=== PATIENT | female | born 1945 | race Caucasian/White ===

== ENCOUNTER 2016-10-18 16:15 | Emergency (ER) | payer OTHER, BC ==
[2016-10-18] MEDS ORDERED: ZOFRAN INJ 4 MG VIAL ONE (16:16)
[2016-10-18] MEDS ORDERED: ZOFRAN INJ 4 MG VIAL IVP ONE ×2 (16:17→16:20)
--- NOTE | 2016-10-18 16:29 | DR.AMS ---
HPI - Time Seen Time seen: 16:15 - HPI Comment HPI Comment: EMS called to home of patient on floor, confused speech. EMS reports left sided weakness asymmetric smile and difficulty with speech. - Source History Provided: EMS - Mode of Arrival Mode of Arrival: Stretcher - Timing Onset of Chief Complaint: 10/18/16 Came On: Suddenly Symptoms: Unchanged Onset of Symptoms Start Date: 10/18/16 (last normal) - Duration Duration: Constant How lon Duration: Hours - Quality Quality: Confusion - Severity Severity: Moderate, Unable to care for self - Context History Of: Diabetes - Associated Signs and Symptoms Associated Signs and Symptoms: Left Sided Weakness, Slurred Speech, Confusion PMH - PMH Past Medical History: Diabetes PE - Vitals Vital Signs: Temp Pulse Resp BP Pulse Ox 10/18/16 16:32 97.1 F L 87 18 145/77 98 Course - Treatment Treatment: 1644: [facility] called on diversion per DR. Canales Er. 165: Called [facility] case dicussed 1710 DR. Lockwood Neurosurgeon accepted patient. Patient intubated as precaution due to emesis and altered LOC ROR - Labs Reviewed Result Diagrams: 10/18/16 16:35 10/18/16 16:35 Laboratory: WBC 6.2 X10^3/uL (3.6-10.0) 10/18/16 16:35 RBC 4.89 X10^6/uL (3.5-5.4) 10/18/16 16:35 Hgb 14.2 g/dL (12.0-16.0) 10/18/16 16:35 Hct 43.0 % (36.0-47.0) 10/18/16 16:35 MCV 88.0 fL (80.0-100.0) 10/18/16 16:35 MCH 29.1 pg (27.0-34.0) 10/18/16 16:35 MCHC 33.1 g/dL (33.0-35.0) 10/18/16 16:35 RDW 14.2 % (11.6-16.5) 10/18/16 16:35 Plt Count 217 X10^3/uL (150.0-450.0) 10/18/16 16:35 MPV 8.9 fL (7.4-11.0) 10/18/16 16:35 Neut % 56.5 % (42.0-75.0) 10/18/16 16:35 Lymph % 32.4 % (21.0-51.0) 10/18/16 16:35 [place] % 7.1 % (0.0-13.0) 10/18/16 16:35 Eos % 2.7 % (0.9-2.9) 10/18/16 16:35 Baso % 1.3 % (0.2-1.0) H 10/18/16 16:35 Neut # 3.5 x10^3/uL (2.2-4.8) 10/18/16 16:35 Lymph # 2.0 X10^3/uL (1.3-2.9) 10/18/16 16:35 [place] # 0.4 x10^3/uL (0.3-0.8) 10/18/16 16:35 Eos # 0.2 x10^3/uL (0.0-0.2) 10/18/16 16:35 Baso # 0.1 X10^3/uL (0.0-0.1) 10/18/16 16:35 Absolute Nucleated RBC 0.1 /100WBC 10/18/16 16:35 - XRAY XRAY Interpreted by: Radiologist XRAY Findings: CT head: right thalamic intraparenchymal hemorrhage with 3mm shift - Diagnosis Discharge Problem: Acute CVA (cerebrovascular accident) - Discharge Plan Condition: Stable - Follow ups/Referrals Follow ups/Referrals: GREGORY CARTER [Primary Care Provider] - 3 days - Instructions
[2016-10-18 16:37] VITALS: BMI 25.8
--- NOTE | 2016-10-18 16:44 | CT ---
HISTORY: Stroke, altered mental status Study: CT brain without contrast Comparison: None Technique: Multiple axial images of the brain were obtained from the skull base to the vertex witho ut administration of IV contrast. AEC was utilized. Findings: There is a hyperdense fluid collection in the right thalamus most compatible with acute intraparench ymal hemorrhage, likely hypertensive in origin, measuring 2.6 x 2.0 x 1.8 cm in greatest transverse, craniocaudal, and AP dimensions respectively with surrounding vasogenic edema as well as approximat anita 3 mm of right to left midline shift. An underlying vascular malformation , hemorrhagic conversio n of an ischemic event, or underlying mass could give a similar appearance as well and for which tem poral surveillance MRI without and with contrast is recommended on a nonemergent basis in approximat anita 3-6 months. There is a small amount of extension into the 3rd ventricle. A background of chronic microvascular ischemic disease is noted. There is an old right frontal lacunar infarct along the ca misael radiata. IMPRESSION: Acute right thalamic intraparenchymal hemorrhage with a small amount of intraventricular extension a nd mild right to left midline shift. Results were discussed with Dr. Gordon at 4:40 p.m. On October 18, [address] Marguerite Bangura. Reported By:
[2016-10-18 16:48] LABS: BASOPHILS # (AUTO) 0.1 X10^3/uL (0.0-0.1); BASOPHILS % (AUTO) 1.3 % (0.2-1.0); EOSINOPHILS # (AUTO) 0.2 x10^3/uL (0.0-0.2); EOSINOPHILS % (AUTO) 2.7 % (0.9-2.9); HEMOGLOBIN 14.2 g/dL (12.0-16.0); LYMPHOCYTES % (AUTO) 32.4 % (21.0-51.0); MEAN CORPUSCULAR HEMOGLOBIN 29.1 pg (27.0-34.0); MEAN CORPUSCULAR HGB CONC 33.1 g/dL (33.0-35.0); MEAN PLATELET VOLUME 8.9 fL (7.4-11.0); MONOCYTES # (AUTO) 0.4 x10^3/uL (0.3-0.8); MONOCYTES % (AUTO) 7.1 % (0.0-13.0); NEUTROPHILS # (AUTO) 3.5 x10^3/uL (2.2-4.8); NEUTROPHILS % (AUTO) 56.5 % (42.0-75.0); PLATELET COUNT 217 X10^3/uL (150.0-450.0); RED BLOOD COUNT 4.89 X10^6/uL (3.5-5.4); RED CELL DISTRIBUTION WIDTH 14.2 % (11.6-16.5); WHITE BLOOD COUNT 6.2 X10^3/uL (3.6-10.0)
[2016-10-18 16:56] LABS: ALANINE AMINOTRANSFERASE 28 Units/L (12-78); ALBUMIN 3.8 g/dL (3.4-5.0); ALKALINE PHOSPHATASE 52 Units/L (46-116); ASPARTATE AMINO TRANSFERASE 14 Units/L (15-37); BLOOD UREA NITROGEN 19 mg/dL (7-18); CALCIUM 9.1 mg/dL (8.5-10.1); CARBON DIOXIDE 27.8 mmol/L (21-32); CHLORIDE 104 mmol/L (98-107); CHOL/HDL RATIO 3.9 (0.0-5.0); CHOLESTEROL 174 mg/dL (0-200); COR NA(FOR HYPERGLY) 144 mmol/L (136-145); CREATININE 0.71 mg/dL (0.55-1.02); GLUCOSE 230 mg/dL (65-99); HDL CHOLESTEROL 45 mg/dL (40-60); SODIUM 141 mmol/L (136-145); TOTAL PROTEIN 7.2 g/dL (6.4-8.2); TRIGLYCERIDES 217 mg/dL (0-150); eGFR BLACK RACES > 60 (>60); eGFR NON BLACK RACES > 60 (>60)
[2016-10-18 17:00] VITALS: BP 157/81
[2016-10-18] MEDS ORDERED: NS 1000 ML 1,000 ML ONE (17:16)
== END 2016-10-18 18:00 | disposition other institution (70) ==
LOC: ER 16:15
DX: I63.9 Cerebral infarction, unspecified (principal); I61.8 Other nontraumatic intracerebral hemorrhage
CPT/HCPCS: 36415; 51702; 70450; 80053; 80061; 85025; 85384; 85610; 85730; 93005; 93010; 96365; 96374; 99283; 99285; A4222; J2405

== ENCOUNTER → 2016-11-07 | Outpatient (CLI) | payer OTHER, BC ==
[2016-10-18 17:00] VITALS: BP 157/81
--- NOTE | 2016-11-07 09:47 | RAD ---
HISTORY: Injury, fall, right thigh pain Study: Right femur two view Comparison: None Findings: No acute cortical disruption or dislocation can be identified. The femoral head and neck are unrema rkable in their appearance. No significant soft tissue swelling or injury can be seen. IMPRESSION: 1. Negative exam of the femur. Reported By:
--- NOTE | 2016-11-07 09:47 | RAD ---
HISTORY: Injury, fall, right thigh pain, right hip pain Study: Right hip two views, AP pelvis Comparison: None Findings: A single frontal view of the pelvis demonstrates the pelvic ring to be intact. No evidence for acut e cortical disruption or dislocation of the hip can be observed. Frog leg views of the hip fails to demonstrate evidence for fracture or significant joint abnormality. Impression: 1. Negative exam. Reported By:
== END ==
LOC: RAD 08:58
PROVIDERS: ATTEND Obstetrics & Gynecology Obstetrics
DX: M25.551 Pain in right hip (principal); M79.651 Pain in right thigh
CPT/HCPCS: 73501; 73552

== ENCOUNTER → 2016-11-30 | Outpatient (CLI) | payer OTHER, BC ==
--- NOTE | 2016-11-30 15:15 | RAD ---
HISTORY: Left knee pain, nontraumatic Study: Left knee 3 view Comparison: None Findings: There is no evidence for acute bone or acute joint abnormality. No fracture, lytic, or blastic lesio n is identified. No erosive changes are present. No joint effusion is present. There is moderate deg enerative medial compartment narrowing. IMPRESSION: Moderate degenerative medial compartment narrowing Reported By:
== END ==
LOC: RAD 13:43
PROVIDERS: ATTEND Obstetrics & Gynecology Obstetrics
DX: M25.562 Pain in left knee (principal)
CPT/HCPCS: 73560

== ENCOUNTER 2023-09-08 11:32 | Inpatient (IN) ==
--- NOTE | 2023-09-08 11:47 | DR.EXTPAIN ---
HPI Time seen Time Seen by Provider: 09/08/23 11:47 Complaint/Symptoms Chief Complaint Doctor Comments: 77-year-old female brought in by EMS for evaluation. Patient fell earlier this a.m. in the bathroom, approximately 3 AM. Patient too weak to get up off the floor, laying there for the past 7 hours. Having posterior head pain, posterior neck pain. Also with pain of the left upper arm, and left knee.. Has a history of chronic arthritis issues, chronic knee pain. Denies visual changes, URI symptoms, bowel or bladder issues. Pain constant, worse with movement. Nothing makes it better. Nurses notes reviewed Nurses Notes Review: Yes Source History Provided: Patient and EMS Mode of arrival Mode of Arrival: EMS PMH PMH Past Medical History: CVA, Diabetes and Hypertension Past Surgical History: Yes Surgical History: Other Family History Family Medical History: Diabetes Mellitus and Hypertension Social History Does patient currently use any type of tobacco product: No Alcohol Use: None Do you use any recreational Drugs:: No ROS Review of Systems Constitutional: No Symptoms Reported Eyes: No Symptoms Reported ENTM: No Symptoms Reported Respiratoy: No Symptoms Reported Cardiovascular: No Symptoms Reported Gastrointestinal/Abdominal: No Symptoms Reported Genitourinary: No Symptoms Reported Neurological: No Symptoms Reported Musculoskeletal: See HPI Integumentary: No Symptoms Reported Hematologic/Lymphatic: No Symptoms Reported All Other Systems: Reviewed and Negative PE Vital Signs Vitals: Vital Signs Temperature 97.6 F Temperature 97.6 F Pulse Rate [Right Brachial] 78 Pulse Rate 98 Pulse Rate 100 Pulse Rate 91 Pulse Rate 78 Respiratory Rate 18 Respiratory Rate 18 Blood Pressure [Right Arm] 146/80 Blood Pressure 149/79 Blood Pressure 146/80 O2 Sat by Pulse Oximetry 92 O2 Sat by Pulse Oximetry 96 O2 Sat by Pulse Oximetry 93 O2 Sat by Pulse Oximetry 97 O2 Sat by Pulse Oximetry 97 General General Appearance: Alert and In No Apparent Distress Head Head Exam: Normal Inspection, Atraumatic and Normocephalic Eyes Eye exam: PERRL and EOMI ENT ENT Exam: Normal Oropharynx and Mucous Membranes Moist Neck Neck Exam: Tenderness (diffuse posterior aspect) Chest Chest Inspection: Normal Inspection Respiratory Respiratory Exam: Normal Lung Sounds Bilat; negative Accessory Muscle Use or Respiratory Distress Cardiovascular Cardiovascular Exam: Regular Rate, Normal Rhythm and Normal Heart Sounds Abdominal Exam Abdominal Exam: Soft; negative Tenderness Extremities Extremities Exam: negative Edema Upper Extremities Arm Exam: Tenderness (L upper humerus, no deformmity or crepitus) Lower Extremities Knee Exam: Tenderness (L knee diffusely, no effusion. ) Back Back Exam: Normal Inspection Neurological Neurological Exam: Alert and CN II-XII Intact; negative Motor Sensory Deficit Skin Skin Exam: Warm and Dry COURSE Treatment Treatment: 77-year-old female fell in the bathroom approximately 7 hours ago, couldn't get off the floor. Will CT the head and neck, and x-ray of the left humerus, left knee. IV started, given IV fluids. Will check baseline labs including a creatine kinase. 1313 - labs acceptable. Imaging studies acceptable, no acute abnormalities. PT recently d/c'd from [place] yesterday. Distant family had made arrangements for pt to have her oown place in [place], just moved in yesterday. Pt unable to care for herself, + h/o dementia. Extended family unable to care for her. Will attempt to readmit, for generalized weakness, possible early rhabdomyolisis. Will contuine to hydrate, follow CK levels. Discussed with Dr Chaney, Covering for Dr Adrian, will admit. U/A checked per Dr Chaney' request. + UTI. Will add IV rocephin daily. ROR Labs Reviewed Laboratory Results Reviewed?: Yes 09/08/23 12:00 09/08/23 12:00 Laboratory: WBC 11.6 X10^3/uL (3.6-10.0) H 09/08/23 12:00 RBC 4.87 X10^6/uL (3.5-5.4) 09/08/23 12:00 Hgb 14.2 g/dL (12.0-16.0) 09/08/23 12:00 Hct 43.4 % (36.0-47.0) 09/08/23 12:00 MCV 89.1 fL (80.0-100.0) 09/08/23 12:00 MCH 29.1 pg (27.0-34.0) 09/08/23 12:00 MCHC 32.7 g/dL (33.0-35.0) L 09/08/23 12:00 RDW 15.4 % (11.6-16.5) 09/08/23 12:00 Plt Count 343 X10^3/uL (150.0-450.0) 09/08/23 12:00 MPV 9.0 fL (7.4-11.0) 09/08/23 12:00 Neut % (Auto) 85.4 % (42.0-75.0) H 09/08/23 12:00 Lymph % (Auto) 7.6 % (21.0-51.0) L 09/08/23 12:00 [place] % (Auto) 6.3 % (0.0-13.0) 09/08/23 12:00 Eos % (Auto) 0.1 % (0.9-2.9) L 09/08/23 12:00 Baso % (Auto) 0.6 % (0.2-1.0) 09/08/23 12:00 Neut # (Auto) 9.9 x10^3/uL (2.2-4.8) H 09/08/23 12:00 Lymph # (Auto) 0.9 X10^3/uL (1.3-2.9) L 09/08/23 12:00 [place] # (Auto) 0.7 x10^3/uL (0.3-0.8) 09/08/23 12:00 Eos # (Auto) 0.0 x10^3/uL (0.0-0.2) 09/08/23 12:00 Baso # (Auto) 0.1 X10^3/uL (0.0-0.1) 09/08/23 12:00 Absolute Nucleated RBC 0.1 /100WBC 09/08/23 12:00 Sodium 138 mmol/L (136-145) 09/08/23 12:00 Corrected Sodium 139 mmol/L (136-145) 09/08/23 12:00 Potassium 4.1 mmol/L (3.5-5.1) 09/08/23 12:00 Chloride 102 mmol/L (98-107) 09/08/23 12:00 Carbon Dioxide 25.4 mmol/L (21-32) 09/08/23 12:00 BUN 19 mg/dL (7-18) H 09/08/23 12:00 Creatinine 0.91 mg/dL (0.55-1.02) 09/08/23 12:00 Est GFR (MDRD) Af Amer > 60 (>60) 09/08/23 12:00 Est GFR (MDRD) Non-Af > 60 (>60) 09/08/23 12:00 Glucose 147 mg/dL (65-99) H 09/08/23 12:00 Calcium 8.9 mg/dL (8.5-10.1) 09/08/23 12:00 Corrected Calcium TNP 09/08/23 12:00 Total Bilirubin 0.50 mg/dL (0.2-1.0) 09/08/23 12:00 AST 18 Units/L (15-37) 09/08/23 12:00 ALT 20 Units/L (12-78) 09/08/23 12:00 Alkaline Phosphatase 61 Units/L (46-116) 09/08/23 12:00 Creatine Kinase 210 Units/L (26-192) H 09/08/23 12:00 Total Protein 7.9 g/dL (6.4-8.2) 09/08/23 12:00 Albumin 3.7 g/dL (3.4-5.0) 09/08/23 12:00 Globulin 4.2 g/dL (2.5-4.5) 09/08/23 12:00 Albumin/Globulin Ratio 0.9 Ratio (1.1-2.1) L 09/08/23 12:00 Lipase 45 Units/L (16-77) 09/08/23 12:00 Specimen Type Catherized urine 09/08/23 13:39 Urine Color Yellow (YELLOW) 09/08/23 13:39 Urine Appearance Slightly hazy (CLEAR) 09/08/23 13:39 Urine pH 5.0 (5.0 - 8.0) 09/08/23 13:39 Ur Specific [place] 1.020 (1.000-1.030) 09/08/23 13:39 Urine Protein 2+ (NEGATIVE) 09/08/23 13:39 Urine Glucose (UA) Negative (NEGATIVE) 09/08/23 13:39 Urine Ketones Negative (NEGATIVE) 09/08/23 13:39 Urine Blood 2+ (NEGATIVE) 09/08/23 13:39 Urine Nitrite Positive (NEGATIVE) 09/08/23 13:39 Urine Bilirubin Negative (NEGATIVE) 09/08/23 13:39 Urine Urobilinogen Normal (NORMAL) 02/04/24 13:39 Ur Leukocyte Esterase Negative (NEGATIVE) 09/08/23 13:39 Urine RBC 3-5 /HPF (0-3) A 09/08/23 13:39 Urine WBC 30-50 /HPF (0-5) A 09/08/23 13:39 Ur Squamous Epith Cells Few /HPF (NEGATIVE) 09/08/23 13:39 Urine Bacteria 4+ /HPF (NEGATIVE) 09/08/23 13:39 Ur Culture Indicated? Yes/culture set up 09/08/23 13:39 Labs acceptable at present XRAY XRAY Interpreted by: Both X-ray Results: No acute abnormalities. EXAM: HEAD (TRAUMA) HISTORY: s/p fall; COMPARISON: July 23, 2023 TECHNIQUE: Axial CT of the head is performed from the base of the skull through the vertex without contrast . Multiplaner reformats are generated from the original axial data. FINDINGS: No intracranial hemorrhage or extra-axial fluid collection identified. Moderate degenerative white matter changes associated with the deep white matter tracts of the supratentorial brain related to chronic small-vessel ischemia. Multiple chronic lacunar infarctions involve the deep white matter tracts, basal ganglia and thalamic nuclei. Athero sclerotic cavernous ICA and vertebral artery calcifications are observed. There is no evidence of an acute intracranial hemorrhage. No extra-axial hematoma is identified. No suprasellar asymmetry is identified. The cerebellar tonsils are normal in position. The craniocervical alignment is maintained. Sinuses and mastoid air cells are predominantly clear. The calvarium is intact. There is evidence of hyperostosis frontalis interna IMPRESSION: No acute intracranial abnormalities Advanced microangiopathic ischemic changes of the supratentorial brain, as detailed above Age-related cortical volume loss with commensurate ventricular dilatation Radiation dose reduction was achieved through individualized adjustment of kVP and/or mA, through adaptive statistical iterative reconstruction, and/or through automated tube current modulation. THIS IS AN ELECTRONICALLY VERIFIED FINAL REPORT 09/08/2023 12:45 PM - Electronically signed by Shane Woodard MD EXAM: CERVICAL SPINE W/O CON HISTORY: pain, s/p fall; COMPARISON: None. TECHNIQUE: Multiple axial images of the cervical spine were obtained from the skull base to the thoracic inlet without administration of IV contrast. Sagittal and coronal reformats were performed and reviewed. Dose reduction techniques including Automated Exposure Control (AEC) and adjustment of mA and kV were utilized. FINDINGS: No prevertebral swelling. No paravertebral fluid collections are demonstrated. There is a nodule of the left thyroid isthmus measuring 8 mm. Athero sclerotic calcifications are associated with bilateral carotid bulbs and proximal ICA segments. The included lung apices are clear. No apical pneumothorax is identified. Athero sclerotic calcifications are also noted within the aortic arch. The craniocervical alignment is maintained. The occipital condyles are intact. 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 The right clavicular head is subluxed anteriorly while the left clavicular head is subluxed posteriorly with respect to the joints. Regarding the cervical spine, the vertebral body heights are adequately maintained. Concave endplate morphology is observed at the inferior aspect of T1 and T2 and superior endplate of T3, most likely of chronic etiology. This results in mild height loss of the levels of T1, T2 and T3 There is congenital or acquired fusion across the facet joints at C2-3 and C3-4. With respect to the cervical spine, the vertebral body heights are well- maintained in the alignment of the spine is anatomic. There is extensive multilevel facet hypertrophy and cervical spondylosis. Disc space narrowing is moderate at C6-7. Degenerative changes of the cervical spine contribute to spinal stenosis and neural foraminal narrowing at various levels. Notably at C6-7 there is moderate spinal stenosis secondary to disc osteophyte complex. At C3-4, there is advanced right-sided neural foraminal compromise secondary to facet and uncovertebral osteophytes. Bone mineral density is uniformly decreased overall. There is mild levoscoliosis of the upper thoracic spine. IMPRESSION: No acute cervical spine fracture or posttraumatic subluxation. See above for details of additional chronic and age-related degenerative imaging findings. THIS IS AN ELECTRONICALLY VERIFIED FINAL REPORT 09/08/2023 12:50 PM - Electronically signed by Shane Woodard MD Opioid Opioid Risk Tool Age ([place] box if 16-45): No History of Preadolescent Sexual Abuse: No Total: 0 Total Score Risk Category: Low Risk Copyright: Jame ARROYO predicting aberrant behaviors Discharge Plan Diagnosis Discharge Problem: Generalized weakness, Rhabdomyolysis, Acute UTI Discharge Plan Patient Disposition: 09 ADMITTED INPATIENT Condition: Stable Orders to Discharge Patient Discharge Orders: Transfer (Routine); Ordered 09/08/23 Ordered By: Michel Naranjo
[2023-09-08] MEDS ORDERED: NS 500 ML IV 500 ML IV ONE (12:03)
[2023-09-08] MEDS: NS 500 ML IV 500 ML IV ONE (12:06)
[2023-09-08 12:23] LABS: BASOPHILS # (AUTO) 0.1 X10^3/uL (0.0-0.1); EOSINOPHILS % (AUTO) 0.1 % (0.9-2.9); LYMPHOCYTES # (AUTO) 0.9 X10^3/uL (1.3-2.9); MONOCYTES % (AUTO) 6.3 % (0.0-13.0)
[2023-09-08 12:25] LABS: ALANINE AMINOTRANSFERASE 20 Units/L (12-78); ALBUMIN 3.7 g/dL (3.4-5.0); ALKALINE PHOSPHATASE 61 Units/L (46-116); ASPARTATE AMINO TRANSFERASE 18 Units/L (15-37); BLOOD UREA NITROGEN 19 mg/dL (7-18); CALCIUM 8.9 mg/dL (8.5-10.1); CARBON DIOXIDE 25.4 mmol/L (21-32); CHLORIDE 102 mmol/L (98-107); COR NA(FOR HYPERGLY) 139 mmol/L (136-145); CREATINE KINASE 210 Units/L (26-192); CREATININE 0.91 mg/dL (0.55-1.02); GLUCOSE 147 mg/dL (65-99); LIPASE 45 Units/L (16-77); POTASSIUM 4.1 mmol/L (3.5-5.1); SODIUM 138 mmol/L (136-145); TOTAL PROTEIN 7.9 g/dL (6.4-8.2); eGFR NON BLACK RACES > 60 (>60)
[2023-09-08 12:34] LABS: BASOPHILS % (AUTO) 0.6 % (0.2-1.0); HEMATOCRIT 43.4 % (36.0-47.0); HEMOGLOBIN 14.2 g/dL (12.0-16.0); LYMPHOCYTES % (AUTO) 7.6 % (21.0-51.0); MEAN CORPUSCULAR HEMOGLOBIN 29.1 pg (27.0-34.0); MEAN CORPUSCULAR HGB CONC 32.7 g/dL (33.0-35.0); MEAN CORPUSCULAR VOLUME 89.1 fL (80.0-100.0); MONOCYTES # (AUTO) 0.7 x10^3/uL (0.3-0.8); NEUTROPHILS # (AUTO) 9.9 x10^3/uL (2.2-4.8); NEUTROPHILS % (AUTO) 85.4 % (42.0-75.0); PLATELET COUNT 343 X10^3/uL (150.0-450.0); RED BLOOD COUNT 4.87 X10^6/uL (3.5-5.4); RED CELL DISTRIBUTION WIDTH 15.4 % (11.6-16.5); WHITE BLOOD COUNT 11.6 X10^3/uL (3.6-10.0)
--- NOTE | 2023-09-08 12:49 | CT ---
EXAM: HEAD (TRAUMA) HISTORY: s/p fall; COMPARISON: July 23, 2023 TECHNIQUE: Axial CT of the head is performed from the base of the skull through the vertex without contrast . Mu ltiplaner reformats are generated from the original axial data. FINDINGS: No intracranial hemorrhage or extra-axial fluid collection identified. Moderate degenerative white m atter changes associated with the deep white matter tracts of the supratentorial brain related to chr onic small-vessel ischemia. Multiple chronic lacunar infarctions involve the deep white matter tract s, basal ganglia and thalamic nuclei. Athero sclerotic cavernous ICA and vertebral artery calcificat ions are observed. There is no evidence of an acute intracranial hemorrhage. No extra-axial hematom a is identified. No suprasellar asymmetry is identified. The cerebellar tonsils are normal in posit ion. The craniocervical alignment is maintained. Sinuses and mastoid air cells are predominantly cl ear. The calvarium is intact. There is evidence of hyperostosis frontalis interna IMPRESSION: No acute intracranial abnormalities Advanced microangiopathic ischemic changes of the supratentorial brain, as detailed above Age-related cortical volume loss with commensurate ventricular dilatation Radiation dose reduction was achieved through individualized adjustment of kVP and/or mA, through ada ptive statistical iterative reconstruction, and/or through automated tube current modulation. THIS IS AN ELECTRONICALLY VERIFIED FINAL REPORT 09/08/2023 12:45 PM - Electronically signed by Shane Woodard MD
--- NOTE | 2023-09-08 12:54 | CT ---
EXAM:CERVICAL SPINE W/O CONHISTORY:pain, s/p fall;COMPARISON:None.TECHNIQUE:Multiple axial images of the cervical spine were obtained from the skull base to the thoracic inlet without administration of IV contrast. Sagittal and coronal reformats were performed and reviewed. Dose reduction techniques including Automated Exposure Control (AEC) and adjustment of mA and kV were utilized.FINDINGS:No prevertebral swelling. No paravertebral fluid collections are demonstrated. There is a nodule of the left thyroid isthmus measuring 8 mm. Athero sclerotic calcifications are associated with bilateral carotid bulbs and proximal ICA segments. The included lung apices are clear. No apical pneumothorax is identified. Athero sclerotic calcifications are also noted within the aortic arch. The craniocervical alignment is maintained. The occipital condyles are intact. 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 The right clavicular head is subluxed anteriorly while the left clavicular head is subluxed posteriorly with respect to the joints.Regarding the cervical spine, the vertebral body heights are adequately maintained. Concave endplate morphology is observed at the inferior aspect of T1 and T2 and superior endplate of T3, most likely of chronic etiology. This results in mild height loss of the levels of T1, T2 and U8Qvong is congenital or acquired fusion across the facet joints at C2-3 and C3-4. With respect to the cervical spine, the vertebral body heights are well-maintained in the alignment of the spine is anatomic. There is extensive multilevel facet hypertrophy and cervical spondylosis. Disc space narrowing is moderate at C6-7. Degenerative changes of the cervical spine contribute to spinal stenosis and neural foraminal narrowing at various levels. Notably at C6-7 there is moderate spinal stenosis secondary to disc osteophyte complex. At C3-4, there is advanced right-sided neural foraminal compromise secondary to facet and uncovertebral osteophytes. Bone mineral density is uniformly decreased overall. There is mild levoscoliosis of the upper thoracic spine.IMPRESSION:No acute cervical spine fracture or posttraumatic subluxation.See above for details of additional chronic and age-related degenerative imaging findings.THIS IS AN ELECTRONICALLY VERIFIED FINAL REPORT09/08/2023 12:50 PM - Electronically signed by Shane Woodard MD
[2023-09-08 13:49] LABS: BILIRUBIN,URINE NEGATIVE (NEGATIVE); BLOOD/HEMOGLOBIN,URINE 2+ (NEGATIVE); GLUCOSE, URINE NEGATIVE (NEGATIVE); KETONES,URINE NEGATIVE (NEGATIVE); LEUKOCYTE ESTERASE ,URINE NEGATIVE (NEGATIVE); NITRITES,URINE POSITIVE (NEGATIVE); PROTEIN,URINE 2+ (NEGATIVE); UROBILINOGEN,URINE NORMAL (NORMAL)
[2023-09-08 14:00] LABS: APPEARANCE,URINE SLIGHTLY HAZY (CLEAR); BACTERIA,URINE 4+ /HPF (NEGATIVE); COLOR,URINE YELLOW (YELLOW); SQUAMOUS EPITHELIAL CELL,UR FEW /HPF (NEGATIVE)
[2023-09-08] MEDS ORDERED: ROCEPHIN VIAL 1 GRAM ONE (14:19)
[2023-09-08] MEDS: ROCEPHIN VIAL 1 GRAM IVP ONE (14:23)
[2023-09-08] MEDS: D5 1/2 NS 1,000 ML 1,000 ML IV SCH (15:30)
[2023-09-08] MEDS: ROCEPHIN VIAL 1 GRAM 1 G in NS 100 ML IV 100 ML IV SCH (15:50)
[2023-09-08] MEDS: GLUCOPHAGE PO SCH (17:14)
[2023-09-08] MEDS: GLUCOPHAGE ONE (17:42)
[2023-09-08] MEDS: CONSULT PHARMACY - POTASSIUM & MAGNESIUM XX SCH (18:56)
--- NOTE | 2023-09-08 19:25 | RAD ---
EXAM:Left humerus two viewsHISTORY:Pain status post fallCOMPARISON:None.TECHNIQUE:Left humerus two viewsFINDINGS:There is no fracture of the humerus. There is an old injury at the AC joint with a deformity of the distal end of the clavicle related to is some mild degeneration of the glenohumeral jointIMPRESSION:No acute abnormality.THIS IS AN ELECTRONICALLY VERIFIED FINAL REPORT09/08/2023 7:21 PM - Electronically signed by Lacho Rushing MD
[2023-09-08] MEDS: SNACK - Diabetic Appropriate PO SCH (19:30)
[2023-09-08] MEDS: MAG-OX TAB PO SCH ×2 (19:59→20:49)
--- NOTE | 2023-09-08 20:44 | RAD ---
EXAM:KNEE COMPLETE, LEFTHISTORY:pain, s/p fall;COMPARISON:None.TECHNIQUE:AP, oblique and lateral views were acquiredFINDINGS:There is no fracture. There is degeneration most severe in the medial compartment with cartilage loss and subchondral sclerosis and osteophyte formation. There is also some osteophyte formation of the lateral compartment.. There is no joint effusion. Soft tissues are unremarkable.IMPRESSION:Degeneration but nothing acute.THIS IS AN ELECTRONICALLY VERIFIED FINAL REPORT09/08/2023 8:34 PM - Electronically signed by Lacho Rushing MD
[2023-09-08] MEDS: ZOCOR TAB 20 MG PO SCH (21:17)
[2023-09-08] MEDS: NovoLIN R (or HumuLIN R) SUBCUT PRN (21:17)
[2023-09-08] MEDS: APRESOLINE TAB 25 MG PO SCH (21:17)
[2023-09-09] MEDS ORDERED: GLUCOPHAGE ONE (04:40)
[2023-09-09 05:30] LABS: BASOPHILS % (AUTO) 0.6 % (0.2-1.0); EOSINOPHILS # (AUTO) 0.1 x10^3/uL (0.0-0.2); EOSINOPHILS % (AUTO) 1.8 % (0.9-2.9); HEMOGLOBIN 12.7 g/dL (12.0-16.0); LYMPHOCYTES # (AUTO) 1.1 X10^3/uL (1.3-2.9); LYMPHOCYTES % (AUTO) 14.7 % (21.0-51.0); MEAN CORPUSCULAR HEMOGLOBIN 28.9 pg (27.0-34.0); MEAN CORPUSCULAR HGB CONC 32.5 g/dL (33.0-35.0); MEAN PLATELET VOLUME 9.1 fL (7.4-11.0); MONOCYTES # (AUTO) 0.8 x10^3/uL (0.3-0.8); MONOCYTES % (AUTO) 11.3 % (0.0-13.0); NEUTROPHILS # (AUTO) 5.3 x10^3/uL (2.2-4.8); NEUTROPHILS % (AUTO) 71.6 % (42.0-75.0); PLATELET COUNT 320 X10^3/uL (150.0-450.0); RED BLOOD COUNT 4.38 X10^6/uL (3.5-5.4); RED CELL DISTRIBUTION WIDTH 15.4 % (11.6-16.5); WHITE BLOOD COUNT 7.4 X10^3/uL (3.6-10.0)
[2023-09-09 05:36] LABS: ALANINE AMINOTRANSFERASE 14 Units/L (12-78); ALBUMIN 2.8 g/dL (3.4-5.0); ALKALINE PHOSPHATASE 50 Units/L (46-116); ASPARTATE AMINO TRANSFERASE 8 Units/L (15-37); BLOOD UREA NITROGEN 19 mg/dL (7-18); CALCIUM 8.1 mg/dL (8.5-10.1); CARBON DIOXIDE 27.5 mmol/L (21-32); CHLORIDE 105 mmol/L (98-107); COR CA(FOR HYPOALB) 9.1 mg/dL (8.5-10.1); COR NA(FOR HYPERGLY) 140 mmol/L (136-145); CREATININE 0.91 mg/dL (0.55-1.02); GLUCOSE 152 mg/dL (65-99); POTASSIUM 3.3 mmol/L (3.5-5.1); SODIUM 139 mmol/L (136-145); TOTAL PROTEIN 6.4 g/dL (6.4-8.2); eGFR NON BLACK RACES > 60 (>60)
[2023-09-09] MEDS ORDERED: CONSULT PHARMACY - POTASSIUM & MAGNESIUM XX SCH (07:00)
[2023-09-09] MEDS: FLONASE NASAL SPRAY ENOSTRIL SCH (09:47)
[2023-09-09] MEDS: LOVENOX INJ 40 MG SYR SC SCH (09:48)
[2023-09-09] MEDS: K-DUR TAB 20 MEQ PO SCH (09:49)
[2023-09-09] MEDS: MAG-OX TAB PO SCH (09:49)
[2023-09-09] MEDS: AMARYL TAB 4 MG PO SCH (09:49)
[2023-09-09] MEDS: ZOLOFT PO SCH (09:49)
[2023-09-09] MEDS: ZyrTEC TAB 10 MG PO SCH (09:49)
[2023-09-09] MEDS: JANUVIA PO SCH (09:49)
--- NOTE | 2023-09-09 13:48 | DR.H&P ---
H&P History & Physical for Day of: H&P Date: 09/09/23 Chief Complaint Chief Complaint: Fell Allergies Allergies Allergy/AdvReac Type Severity Reaction Status Date / Time codeine Allergy Unknown Verified 09/08/23 13:54 History of Present Illness History of Present Illness: This is a pleasant 77-year-old white female well- known to me. I just discharged her from the [facility] on September 06, 2023. Unfortunately, the patient was only able to spend 1 full day home. The patient got up around 3 AM to use the restroom and fell. She was too weak to get up off the floor and laid there for about 7 hours. She was having posterior head pain, posterior neck pain and also pain of the left upper arm and left knee. She sustained this during the fall. X-rays revealed no acute fracture or problems from the fall. Urinalysis shows that she has a mild urinar y tract infection. She denies any visual changes, upper respiratory symptoms, or GI symptoms. She reports that the pain from the fall is constant and worse with movement. Nothing is making it better. 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 Past Surgical History Surgical History: Other Family History Family Medical History: Diabetes Mellitus and Hypertension Social History Does patient currently use any type of tobacco product: No Does any household member use tobacco: No Alcohol Use: None Drug Use: None Medications Home Medications: Home Medications Medication Instructions Recorded Confirmed Type cetirizine 10 mg tablet 10 mg PO QDAY 09/08/23 09/08/23 History diclofenac sodium 1 % topical gel 1 ea topical QID 09/08/23 09/08/23 History fluticasone propionate 50 2 spray intranasal DAILY 09/08/23 09/08/23 History mcg/actuation nasal spray,suspension glimepiride 4 mg tablet 4 mg PO QDAY 09/08/23 09/08/23 History hydralazine 25 mg tablet 25 mg PO TID 09/08/23 09/08/23 History metformin 500 mg tablet 500 mg PO BID 09/08/23 09/08/23 History sertraline 50 mg tablet 50 mg PO QDAY 09/08/23 09/08/23 History simvastatin 20 mg tablet 20 mg PO QPM 09/08/23 09/08/23 History sitagliptin phosphate 100 mg 100 mg PO QDAY 09/08/23 09/08/23 History tablet (Januvia) Labs 09/09/23 04:25 09/09/23 04:25 Labs: 09/08/23 13:39 Urine,Catheterized Urine Culture - Preliminary Laboratory WBC 7.4 X10^3/uL (3.6-10.0) 09/09/23 04:25 RBC 4.38 X10^6/uL (3.5-5.4) 09/09/23 04:25 Hgb 12.7 g/dL (12.0-16.0) 09/09/23 04:25 Hct 39.0 % (36.0-47.0) 09/09/23 04:25 MCV 89.0 fL (80.0-100.0) 09/09/23 04:25 MCH 28.9 pg (27.0-34.0) 09/09/23 04:25 MCHC 32.5 g/dL (33.0-35.0) L 09/09/23 04:25 RDW 15.4 % (11.6-16.5) 09/09/23 04:25 Plt Count 320 X10^3/uL (150.0-450.0) 09/09/23 04:25 MPV 9.1 fL (7.4-11.0) 09/09/23 04:25 Neut % (Auto) 71.6 % (42.0-75.0) 09/09/23 04:25 Lymph % (Auto) 14.7 % (21.0-51.0) L 09/09/23 04:25 [place] % (Auto) 11.3 % (0.0-13.0) 09/09/23 04:25 Eos % (Auto) 1.8 % (0.9-2.9) 09/09/23 04:25 Baso % (Auto) 0.6 % (0.2-1.0) 09/09/23 04:25 Neut # (Auto) 5.3 x10^3/uL (2.2-4.8) H 09/09/23 04:25 Lymph # (Auto) 1.1 X10^3/uL (1.3-2.9) L 09/09/23 04:25 [place] # (Auto) 0.8 x10^3/uL (0.3-0.8) 09/09/23 04:25 Eos # (Auto) 0.1 x10^3/uL (0.0-0.2) 09/09/23 04:25 Baso # (Auto) 0.0 X10^3/uL (0.0-0.1) 09/09/23 04:25 Absolute Nucleated RBC 0.0 /100WBC 09/09/23 04:25 Sodium 139 mmol/L (136-145) 09/09/23 04:25 Corrected Sodium 140 mmol/L (136-145) 09/09/23 04:25 Potassium 3.3 mmol/L (3.5-5.1) L 09/09/23 04:25 Chloride 105 mmol/L (98-107) 09/09/23 04:25 Carbon Dioxide 27.5 mmol/L (21-32) 09/09/23 04:25 BUN 19 mg/dL (7-18) H 09/09/23 04:25 Creatinine 0.91 mg/dL (0.55-1.02) 09/09/23 04:25 Est GFR (MDRD) Af Amer > 60 (>60) 09/09/23 04:25 Est GFR (MDRD) Non-Af > 60 (>60) 09/09/23 04:25 Glucose 152 mg/dL (65-99) H 09/09/23 04:25 POC Glucose (mg/dL) 129 mg/dL (65-99) H 09/09/23 12:29 Calcium 8.1 mg/dL (8.5-10.1) L 09/09/23 04:25 Corrected Calcium 9.1 mg/dL (8.5-10.1) 09/09/23 04:25 Magnesium 1.9 mg/dL (2.0-2.9) L 09/09/23 04:25 Total Bilirubin 0.40 mg/dL (0.2-1.0) 09/09/23 04:25 AST 8 Units/L (15-37) L 09/09/23 04:25 ALT 14 Units/L (12-78) 09/09/23 04:25 Alkaline Phosphatase 50 Units/L (46-116) 09/09/23 04:25 Creatine Kinase 140 Units/L (26-192) 09/09/23 04:25 Total Protein 6.4 g/dL (6.4-8.2) 09/09/23 04:25 Albumin 2.8 g/dL (3.4-5.0) L 09/09/23 04:25 Globulin 3.6 g/dL (2.5-4.5) 09/09/23 04:25 Albumin/Globulin Ratio 0.8 Ratio (1.1-2.1) L 09/09/23 04:25 Lipase 45 Units/L (16-77) 09/08/23 12:00 Specimen Type Catherized urine 09/08/23 13:39 Urine Color Yellow (YELLOW) 09/08/23 13:39 Urine Appearance Slightly hazy (CLEAR) 09/08/23 13:39 Urine pH 5.0 (5.0 - 8.0) 09/08/23 13:39 Ur Specific [place] 1.020 (1.000-1.030) 09/08/23 13:39 Urine Protein 2+ (NEGATIVE) 09/08/23 13:39 Urine Glucose (UA) Negative (NEGATIVE) 09/08/23 13:39 Urine Ketones Negative (NEGATIVE) 09/08/23 13:39 Urine Blood 2+ (NEGATIVE) 09/08/23 13:39 Urine Nitrite Positive (NEGATIVE) 09/08/23 13:39 Urine Bilirubin Negative (NEGATIVE) 09/08/23 13:39 Urine Urobilinogen Normal (NORMAL) 09/08/23 13:39 Ur Leukocyte Esterase Negative (NEGATIVE) 09/08/23 13:39 Urine RBC 3-5 /HPF (0-3) A 09/08/23 13:39 Urine WBC 30-50 /HPF (0-5) A 09/08/23 13:39 Ur Squamous Epith Cells Few /HPF (NEGATIVE) 09/08/23 13:39 Urine Bacteria 4+ /HPF (NEGATIVE) 09/08/23 13:39 Ur Culture Indicated? Yes/culture set up 09/08/23 13:39 Review of Systems Constitutional: No Symptoms Reported Eyes: No Symptoms Reported ENT: No Symptoms Reported Respiratory: No Symptoms Reported Cardiovascular: No Symptoms Reported Gastrointestinal: No Symptoms Reported Genitourinary: No Symptoms Reported Musculoskeletal: Arm Pain, Back Pain and Leg Pain Skin: No Symptoms Reported Neurological: No Symptoms Reported Physical Exam Vital Signs: Vital Signs Temperature 98.0 F Temperature 98.4 F Pulse Rate 91 Pulse Rate 96 Pulse Rate 107 Pulse Rate 107 Pulse Rate 116 Pulse Rate 103 Pulse Rate 104 Pulse Rate 97 Respiratory Rate 32 Respiratory Rate 27 Respiratory Rate 52 Respiratory Rate 36 Respiratory Rate 31 Respiratory Rate 29 Blood Pressure 157/87 Blood Pressure 129/72 Blood Pressure 117/89 Blood Pressure 117/89 Blood Pressure 137/78 Blood Pressure 139/74 O2 Sat by Pulse Oximetry 95 O2 Sat by Pulse Oximetry 93 O2 Sat by Pulse Oximetry 93 O2 Sat by Pulse Oximetry 93 O2 Sat by Pulse Oximetry 94 O2 Sat by Pulse Oximetry 95 O2 Sat by Pulse Oximetry 94 O2 Sat by Pulse Oximetry 94 Oriented: Normal, Time, Person and Place Eyes: Normal Ear: Normal Nose: Normal Throat: Normal Respiratory: Clear Throughout Cardiovascular: Normal Auscultation: Bowel Sounds: Normal Palpation: Normal Tenderness: Normal Skin: Normal Musculoskeletal: Normal Psychiatric: Anxiety and Agitation Mood Description: Calm Affect: Normal Speech Pattern: Appropriate Assessment/Plan (1) Acute UTI: Status: Acute Plan: IV Rocephin. Follow-up urine culture and sensitivity when available. (2) Generalized weakness: Status: Acute Plan: Consult physical therapy. (3) Rhabdomyolysis: Status: Resolved Plan: IV hydration. Repeat CK this morning showed that it is normal. (4) Primary hypertension: Status: None Plan: Monitor daily blood pressures. (5) Status post fall: Status: Acute Plan: Evaluation by physical therapy today (6) Type 2 diabetes mellitus: Status: None Plan: Continue home diabetic medications. Review H&P Reviewed: Yes Patient was examined?: Yes
[2023-09-09] MEDS: GLUCOPHAGE ONE (16:36)
[2023-09-10] MEDS ORDERED: GLUCOPHAGE ONE (04:23)
[2023-09-10 05:29] LABS: BASOPHILS # (AUTO) 0.1 X10^3/uL (0.0-0.1); BASOPHILS % (AUTO) 0.9 % (0.2-1.0); EOSINOPHILS # (AUTO) 0.3 x10^3/uL (0.0-0.2); EOSINOPHILS % (AUTO) 4.2 % (0.9-2.9); HEMATOCRIT 37.7 % (36.0-47.0); LYMPHOCYTES # (AUTO) 1.2 X10^3/uL (1.3-2.9); LYMPHOCYTES % (AUTO) 18.3 % (21.0-51.0); MEAN CORPUSCULAR HEMOGLOBIN 28.5 pg (27.0-34.0); MEAN CORPUSCULAR HGB CONC 31.9 g/dL (33.0-35.0); MEAN CORPUSCULAR VOLUME 89.3 fL (80.0-100.0); MEAN PLATELET VOLUME 9.1 fL (7.4-11.0); MONOCYTES # (AUTO) 0.7 x10^3/uL (0.3-0.8); MONOCYTES % (AUTO) 11.3 % (0.0-13.0); NEUTROPHILS # (AUTO) 4.2 x10^3/uL (2.2-4.8); NEUTROPHILS % (AUTO) 65.3 % (42.0-75.0); PLATELET COUNT 285 X10^3/uL (150.0-450.0); RED BLOOD COUNT 4.22 X10^6/uL (3.5-5.4); RED CELL DISTRIBUTION WIDTH 15.3 % (11.6-16.5); WHITE BLOOD COUNT 6.5 X10^3/uL (3.6-10.0)
[2023-09-10 05:46] LABS: ALANINE AMINOTRANSFERASE 15 Units/L (12-78); ALBUMIN 2.6 g/dL (3.4-5.0); ALKALINE PHOSPHATASE 47 Units/L (46-116); ASPARTATE AMINO TRANSFERASE 9 Units/L (15-37); BLOOD UREA NITROGEN 15 mg/dL (7-18); CARBON DIOXIDE 25.1 mmol/L (21-32); CHLORIDE 107 mmol/L (98-107); COR CA(FOR HYPOALB) 9.1 mg/dL (8.5-10.1); COR NA(FOR HYPERGLY) 139 mmol/L (136-145); CREATININE 0.87 mg/dL (0.55-1.02); GLUCOSE 118 mg/dL (65-99); SODIUM 139 mmol/L (136-145); TOTAL PROTEIN 6.2 g/dL (6.4-8.2); eGFR NON BLACK RACES > 60 (>60)
[2023-09-10 09:00] VITALS: BMI 31.3
[2023-09-10] MEDS ORDERED: AFRIN NASAL SPRAY PRN (09:14)
--- NOTE | 2023-09-10 12:54 | RAD ---
EXAM: SHOULDER, RIGHT HISTORY: right shoulder pain; COMPARISON: No relevant studies are available for comparison at the time of interpretation. TECHNIQUE: 3 view(s) FINDINGS: The proximal humerus clavicle and scapula are intact. Acromioclavicular joint alignment is anatomic . No glenohumeral dislocation noted. No significant degenerative change. Soft tissues are unremarkabl e. IMPRESSION: 1. No acute fracture or dislocation THIS IS AN ELECTRONICALLY VERIFIED FINAL REPORT 09/10/2023 12:51 PM - Electronically signed by Kristopher Mills MD
[2023-09-10] MEDS: GLUCOPHAGE ONE (17:56)
--- NOTE | 2023-09-10 19:33 | PCM.PROG ---
Progress Note Progress Note for Day of Date of Exam: 09/10/23 Subjective Subjective: The patient is alert and awake this morning. She reports that her left knee and right shoulder are hurting. She had a left knee x-ray that showed no acute injuries but chronic degenerative changes. The right shoulder x-rays showed no acute injuries and no acute problems. I discussed with her at length this morning about changing her mind to going to the alf full-time. She states that she will do that if her insurance can cover it. We informed case management, and they are working on and checking her insurance out. I told her that I thought she was a danger to herself if she was to stay home by herself. The patient's white blood cell count was 6500 this morning, and her hydration status is normal today. I do see that she is tachypneic for whatever reason, but she does not appear to be in respiratory distress. Will continue to treat her UTI with IV Rocephin. We will follow-up with the urine culture and sensitivity reports when available. We will plan on repeating her routine labs tomorrow morning. We should be able to discharge her to the alf tomorrow if she is in agreement with fullterm admission. Past Medical Family Social History Allergies: Allergies codeine Allergy (Unknown, Verified 09/08/23 13:54) Reason: Drug allergy Vital Signs and I&O's Vital Signs: Vital Signs Pulse Rate 90 Pulse Rate 96 Respiratory Rate 29 Respiratory Rate 33 Blood Pressure 161/77 Blood Pressure 184/92 O2 Sat by Pulse Oximetry 94 O2 Sat by Pulse Oximetry 94 Intake and Output: Intake & Output 09/08/23 09/09/23 09/10/23 09/11/23 11:59 11:59 11:59 11:59 Intake Total 1831 / 1831 2825 / 2825 1150 / 1150 Balance 1831 / 1831 2825 / 2825 1150 / 1150 Physical Exam Oriented: Normal, Time, Person and Place Eyes: Normal Ear: Normal Nose: Normal Throat: Normal Cardiovascular: Normal Auscultation: Bowel Sounds: Normal Tenderness: Normal Skin: Normal Musculoskeletal: Normal Psychiatric: Anxiety and Agitation Mood Description: Calm Affect: Normal Speech Pattern: Clear and Appropriate Laboratory and Diagnostics 09/10/23 04:18 09/10/23 04:18 Labs: 09/08/23 13:39 Urine,Catheterized Urine Culture - Preliminary Laboratory WBC 6.5 X10^3/uL (3.6-10.0) 09/10/23 04:18 RBC 4.22 X10^6/uL (3.5-5.4) 09/10/23 04:18 Hgb 12.0 g/dL (12.0-16.0) 09/10/23 04:18 Hct 37.7 % (36.0-47.0) 09/10/23 04:18 MCV 89.3 fL (80.0-100.0) 09/10/23 04:18 MCH 28.5 pg (27.0-34.0) 09/10/23 04:18 MCHC 31.9 g/dL (33.0-35.0) L 09/10/23 04:18 RDW 15.3 % (11.6-16.5) 09/10/23 04:18 Plt Count 285 X10^3/uL (150.0-450.0) 09/10/23 04:18 MPV 9.1 fL (7.4-11.0) 09/10/23 04:18 Neut % (Auto) 65.3 % (42.0-75.0) 09/10/23 04:18 Lymph % (Auto) 18.3 % (21.0-51.0) L 09/10/23 04:18 [place] % (Auto) 11.3 % (0.0-13.0) 09/10/23 04:18 Eos % (Auto) 4.2 % (0.9-2.9) H 09/10/23 04:18 Baso % (Auto) 0.9 % (0.2-1.0) 09/10/23 04:18 Neut # (Auto) 4.2 x10^3/uL (2.2-4.8) 09/10/23 04:18 Lymph # (Auto) 1.2 X10^3/uL (1.3-2.9) L 09/10/23 04:18 [place] # (Auto) 0.7 x10^3/uL (0.3-0.8) 09/10/23 04:18 Eos # (Auto) 0.3 x10^3/uL (0.0-0.2) H 09/10/23 04:18 Baso # (Auto) 0.1 X10^3/uL (0.0-0.1) 09/10/23 04:18 Absolute Nucleated RBC 0.0 /100WBC 09/10/23 04:18 Sodium 139 mmol/L (136-145) 09/10/23 04:18 Corrected Sodium 139 mmol/L (136-145) 09/10/23 04:18 Potassium 4.0 mmol/L (3.5-5.1) 09/10/23 04:18 Chloride 107 mmol/L (98-107) 09/10/23 04:18 Carbon Dioxide 25.1 mmol/L (21-32) 09/10/23 04:18 BUN 15 mg/dL (7-18) 09/10/23 04:18 Creatinine 0.87 mg/dL (0.55-1.02) 09/10/23 04:18 Est GFR (MDRD) Af Amer > 60 (>60) 09/10/23 04:18 Est GFR (MDRD) Non-Af > 60 (>60) 09/10/23 04:18 Glucose 118 mg/dL (65-99) H 09/10/23 04:18 POC Glucose (mg/dL) 144 mg/dL (65-99) H 09/10/23 19:12 Calcium 8.0 mg/dL (8.5-10.1) L 09/10/23 04:18 Corrected Calcium 9.1 mg/dL (8.5-10.1) 09/10/23 04:18 Magnesium 1.8 mg/dL (2.0-2.9) L 09/10/23 04:18 Total Bilirubin 0.50 mg/dL (0.2-1.0) 09/10/23 04:18 AST 9 Units/L (15-37) L 09/10/23 04:18 ALT 15 Units/L (12-78) 09/10/23 04:18 Alkaline Phosphatase 47 Units/L (46-116) 09/10/23 04:18 Creatine Kinase 140 Units/L (26-192) 09/09/23 04:25 Total Protein 6.2 g/dL (6.4-8.2) L 09/10/23 04:18 Albumin 2.6 g/dL (3.4-5.0) L 09/10/23 04:18 Globulin 3.6 g/dL (2.5-4.5) 09/10/23 04:18 Albumin/Globulin Ratio 0.7 Ratio (1.1-2.1) L 09/10/23 04:18 Lipase 45 Units/L (16-77) 09/08/23 12:00 Specimen Type Catherized urine 09/08/23 13:39 Urine Color Yellow (YELLOW) 09/08/23 13:39 Urine Appearance Slightly hazy (CLEAR) 09/08/23 13:39 Urine pH 5.0 (5.0 - 8.0) 09/08/23 13:39 Ur Specific [place] 1.020 (1.000-1.030) 09/08/23 13:39 Urine Protein 2+ (NEGATIVE) 09/08/23 13:39 Urine Glucose (UA) Negative (NEGATIVE) 09/08/23 13:39 Urine Ketones Negative (NEGATIVE) 09/08/23 13:39 Urine Blood 2+ (NEGATIVE) 09/08/23 13:39 Urine Nitrite Positive (NEGATIVE) 09/08/23 13:39 Urine Bilirubin Negative (NEGATIVE) 09/08/23 13:39 Urine Urobilinogen Normal (NORMAL) 09/08/23 13:39 Ur Leukocyte Esterase Negative (NEGATIVE) 09/08/23 13:39 Urine RBC 3-5 /HPF (0-3) A 09/08/23 13:39 Urine WBC 30-50 /HPF (0-5) A 09/08/23 13:39 Ur Squamous Epith Cells Few /HPF (NEGATIVE) 09/08/23 13:39 Urine Bacteria 4+ /HPF (NEGATIVE) 09/08/23 13:39 Ur Culture Indicated? Yes/culture set up 09/08/23 13:39 Plan (1) Acute UTI: Status: Acute Plan: IV Rocephin. Follow-up urine culture and sensitivity when available. (2) Generalized weakness: Status: Acute Plan: Consult physical therapy. (3) Rhabdomyolysis: Status: Resolved Plan: IV hydration. Repeat CK tomorrow morning to see if her rhabdomyolysis has resolved. (4) Primary hypertension: Status: None Plan: Monitor daily blood pressures. (5) Status post fall: Status: Acute Plan: I have discussed full-time alf placement with the patient and she is currently considering this possibility. She will let me know tomorrow. She says she will do it as long as her insurance covers it. (6) Type 2 diabetes mellitus: Status: None Plan: Continue home diabetic medications.
[2023-09-10] MEDS: TYLENOL 325 MG TAB PO PRN (22:25)
[2023-09-11] MEDS ORDERED: GLUCOPHAGE ONE (05:02)
[2023-09-11 05:25] LABS: BASOPHILS # (AUTO) 0.1 X10^3/uL (0.0-0.1); BASOPHILS % (AUTO) 1.2 % (0.2-1.0); EOSINOPHILS # (AUTO) 0.3 x10^3/uL (0.0-0.2); EOSINOPHILS % (AUTO) 4.8 % (0.9-2.9); HEMATOCRIT 36.5 % (36.0-47.0); HEMOGLOBIN 11.9 g/dL (12.0-16.0); LYMPHOCYTES % (AUTO) 18.9 % (21.0-51.0); MEAN CORPUSCULAR HGB CONC 32.5 g/dL (33.0-35.0); MEAN CORPUSCULAR VOLUME 89.3 fL (80.0-100.0); MEAN PLATELET VOLUME 9.1 fL (7.4-11.0); MONOCYTES # (AUTO) 0.6 x10^3/uL (0.3-0.8); MONOCYTES % (AUTO) 10.3 % (0.0-13.0); NEUTROPHILS # (AUTO) 3.6 x10^3/uL (2.2-4.8); NEUTROPHILS % (AUTO) 64.8 % (42.0-75.0); PLATELET COUNT 278 X10^3/uL (150.0-450.0); RED BLOOD COUNT 4.09 X10^6/uL (3.5-5.4); RED CELL DISTRIBUTION WIDTH 15.4 % (11.6-16.5); WHITE BLOOD COUNT 5.5 X10^3/uL (3.6-10.0)
[2023-09-11 05:45] LABS: ALANINE AMINOTRANSFERASE 13 Units/L (12-78); ALBUMIN 2.6 g/dL (3.4-5.0); ALKALINE PHOSPHATASE 47 Units/L (46-116); ASPARTATE AMINO TRANSFERASE 10 Units/L (15-37); BLOOD UREA NITROGEN 13 mg/dL (7-18); CARBON DIOXIDE 25.3 mmol/L (21-32); CHLORIDE 106 mmol/L (98-107); COR NA(FOR HYPERGLY) 139 mmol/L (136-145); CREATININE 0.83 mg/dL (0.55-1.02); GLUCOSE 119 mg/dL (65-99); MAGNESIUM 1.8 mg/dL (2.0-2.9); POTASSIUM 3.7 mmol/L (3.5-5.1); SODIUM 139 mmol/L (136-145); TOTAL PROTEIN 6.3 g/dL (6.4-8.2); eGFR NON BLACK RACES > 60 (>60)
[2023-09-11 05:50] LABS: COR CA(FOR HYPOALB) 9.1 mg/dL (8.5-10.1)
[2023-09-11] MEDS ORDERED: CONSULT PHARMACY - POTASSIUM & MAGNESIUM XX SCH (07:00)
[2023-09-11 08:16] VITALS: BP 138/75; PULSE 98; RESP 23; TEMP 97.5; O2SAT 93
[2023-09-11] MEDS: K-DUR TAB 20 MEQ PO SCH (09:33)
[2023-09-11] MEDS: MAG-OX TAB PO SCH (09:35)
== END 2023-09-11 11:00 | DRG 690 ==
LOC: ER 11:32 → ICU 13:56
PROVIDERS: ADMIT Obstetrics & Gynecology Obstetrics; ATTEND Family Medicine
DX: R26.89 Other abnormalities of gait and mobility; N39.0 Urinary tract infection, site not specified; M62.82 Rhabdomyolysis; I10 Essential (primary) hypertension; Z16.12 Extended spectrum beta lactamase (ESBL) resistance; B96.29 Other Escherichia coli [E. coli] as the cause of diseases classified elsewhere; E83.42 Hypomagnesemia; Z91.81 History of falling; E11.65 Type 2 diabetes mellitus with hyperglycemia; R53.1 Weakness